=== PATIENT | female | born 1970 | race Caucasian/White ===

== ENCOUNTER 2025-01-23 22:48 | Emergency (ER) | payer OTHER, SELFPAY ==
[2025-01-23 22:52] VITALS: BP 176/92
[2025-01-23 23:16] LABS: Hematocrit 39.7 % (37.0-47.0); Hemoglobin 13.2 g/dL (12.0-16.0); Mean Corp Hgb Conc. 33.2 g/dL (33.0-37.0); Mean Corpuscular Volume 85.9 fL (81.0-99.0); Nucleated Red Blood Cells % 0 %; Platelet Count 351 10^3/uL (130-400); Red Cell Dist. Width 12.5 % (11.5-14.5)
[2025-01-23 23:25] LABS: ALT (SGPT) 21 U/L (0-35); AST (SGOT) 21 U/L (14-36); Albumin 4.3 g/dl (3.5-5.0); Alkaline Phosphatase 87 U/L (38-126); Blood Urea Nitrogen 15 mg/dl (7-17); Calcium 9.2 mg/dl (8.4-10.2); Carbon Dioxide 28 mmol/L (22-30); Chloride 104 mmol/L (98-107); Glucose 135 mg/dl (70-99); Potassium 3.5 mmol/L (3.5-5.1); Sodium 140 mmol/L (135-145); eGFR > 60.00
[2025-01-23 23:32] LABS: Troponin I < 0.012 ng/ml
[2025-01-23 23:34] LABS: Total Protein 6.5 g/dl (6.3-8.2)
[2025-01-24 01:13] VITALS: BP 117/76
[2025-01-24 01:21] VITALS: BMI 26.7
--- NOTE | 2025-01-24 01:42 | ED.GENMED ---
History of Present Illness
General
Chief Complaint: Chest Pain
Source: patient
Time Seen by Provider: 01/24/25 01:10
History of Present Illness
History of Present Illness:
54-year-old female presents emergency room complaint intermittent chest pain. Patient has been experiencing the chest discomfort for the past several days. It waxes and wanes without regard to any sort of activity. She describes it as a pressure.
No associated shortness of breath, diaphoresis or nausea. Patient has a history of Joe's thyroiditis and perhaps she was having issues related to that. She denies any change in her medications recently. She is feeling comfortable while
laying in bed at this time. She was able to walk a couple miles today without any chest discomfort or shortness of breath.
Phy Exam
Physical Exam
Physical Exam:
General: Awake, Alert, Oriented X3. No acute distress.
Vitals: unremarkable
Head: Atraumatic
Eyes: Pupils equal, EOMI
Throat: Airway intact, no exudates
Neck: Trachea midline
Lungs: Clear and equal b/l
Heart: Regular rate, no murmurs
Abd: Soft, Nontender, No pulsatile mass
Neuro: Nonfocal
Skin: Warm, dry, no rash
Extremities: pulses equal b/l, no edema
Scores
Heart Score for Chest Pain Patients
STEMI patient?: No
History: Slightly or Non-Suspicious
ECG: Normal
Age: >45 - <65 years
Risk Factors: 1 or 2 Risk Factors
Troponin: </= Normal Limit
Heart Score for Chest Pain Patients: 2
Heart Score Risk: 2.5% MACE over next 6 weeks
Course
Orders/Labs/Results
Orders:
Orders
01/23/25 22:51
Electrocardiogram (*1) Urgent
Reason for Study: Chest Pain
01/23/25 22:52
EKG- Treatment ONCE
01/23/25 23:01
Complete Blood Count/With Diff Urgent
Comprehensive Metabolic Panel Urgent
Troponin I Urgent
01/24/25 02:11
Troponin I Urgent
Abnormal Lab Results
01/23/25
23:01
Absolute Monos (auto) 1.0 H 10^3/uL
(0.1-0.6)
Monocytes % 11.5 H %
(1.7-9.3)
Glucose 135 H mg/dl
(70-99)
01/23/25 23:01
01/23/25 23:01
Vital Signs
Initial and Last Documented VS:
Initial Vital Signs
Temp
98.3 F
01/23/25 22:49
Last Documented Vital Signs
Temp Pulse Resp BP Pulse Ox
98.2 F 69 18 103/65 97
01/23/25 22:52 01/24/25 03:30 01/24/25 03:30 01/24/25 03:00 01/24/25 03:30
MDM/Problems Addressed
Differential Diagnosis Includes:
Acute coronary syndrome, chest wall pain, dysrhythmia
MDM/Problems Addressed:
Patient presents with chest discomfort which is waxing and waning in intensity. No ischemic changes on EKG. Troponins negative x 2. Discussed having a chest x-ray performed with the patient but she had 1 just a week or so ago so would prefer to
not have another x-ray. Seems reasonable. Will put the patient on the chest pain hotline for [facility] given her odd medical record number.
*Pulse Oximetry
SaO2: 99
Oxygen Mode of Delivery: Room air
Patient hypoxic: no
*EKG
Interpreted by ED Provider?: Yes
Interpretation: normal
Heart Rate: 89
Rate: normal
Rhythm: sinus
Glady: normal axis
Interval: normal interval
QRS Pattern: normal QRS
Ischemia: no ischemia
*Silhouette Artist Interpretation
Rate: normal
Interpretation: normal
Rhythm: sinus
*Critical Care Note
Total Time (30-74mins, 75-104mins- exclusive of procedures): Not Applicable
ED Attending Note
-
Portions of this chart may have been created with voice recognition software.� Occasional wrong word or��sound alike� substitutions may have occurred due to the inherent limitations of voice recognition software.
Discharge Plan
Departure
Patient Disposition: Home (Routine Discharge)
Date of Disposition: 01/24/25
Time of Disposition: 03:28
Patient with high blood pressure during this ER visit?: No
Condition: Good
Discharge Problem:
Chest pain
Instructions: Chest Pain [facility] Follow Up
Referrals:
Estela Landin MD [Family Provider, Family Practice]
Trevor London MD [Active, Cardiology]
Activity Restrictions/Additional Instructions:
Your testing shows no evidence of an acute heart attack or other cardiac problem. I have given you contact information for our cardiology clinic. You should receive a call from their office to arrange an appointment. Also follow-up with family
care provider
Interventions
Interventions:
*Risk Screen - Suicide Last Done: 01/23/25 22:54
*General Assessment Last Done: 01/24/25 01:21
*Neglect/Abuse Screening Last Done: 01/23/25 22:54
*ED- Fall Risk Assessment Last Done: 01/24/25 01:21
*ED COVID-19 Vaccine History Last Done: 01/24/25 01:21
*ED Influenza Vaccine History Last Done: 01/24/25 01:21
*Nursing Disposition Last Done: 01/24/25 03:47
ED- Cardiac Assessment Last Done: 01/24/25 01:27
Discharge Date and Time
Discharge Date/Time: 01/24/25 03:48
Print Language: CHILEAN
[2025-01-24 02:00] VITALS: BP 111/65
[2025-01-24 03:00] VITALS: BP 103/65
[2025-01-24 03:17] LABS: Troponin I < 0.012 ng/ml
== END 2025-01-24 03:48 | disposition home or self-care (01) ==
LOC: EMR 22:48
PROVIDERS: Emergency Medicine; EMERGENCY PHYSICIAN Emergency Medicine; FAMILY PHYSICIAN Family Medicine
DX: R07.89 Other chest pain (principal); E06.3 Autoimmune thyroiditis
CPT/HCPCS: 99284; 80053; 84484; 85025; 93005